=== PATIENT | male | born 1990 | race Caucasian/White ===

== ENCOUNTER 2017-05-27 16:19 | Emergency (ER) | payer OTHER ==
--- NOTE | 2017-05-27 16:50 | RADIOLOGY REPORT (SQ) ---
EXAM DESCRIPTION: SHOULDER RIGHT 2 OR MORE VIEWS COMPLETED DATE/TIME: 05/27/2017 4:42 pm REASON FOR STUDY: injury COMPARISON: None. NUMBER OF VIEWS: Two views. TECHNIQUE: Frontal and Y-view images acquired of the right shoulder. LIMITATIONS: None. FINDINGS: MINERALIZATION: Normal. BONES: There is anterior, inferior dislocation of the glenohumeral joint. No fractures are visualize d. VISUALIZED LUNGS AND RIBS: No pneumothorax. No rib fracture. SOFT TISSUES: No radiopaque foreign body. OTHER: No other significant finding. IMPRESSION: Anterior, inferior dislocation of the glenohumeral joint. TECHNICAL DOCUMENTATION: JOB ID: [id number] [employer]- All Rights Reserved
[2017-05-27] MEDS ORDERED: FENTANYL CITRATE INJ/PF 250 MCG/5 ML AMPULE IV ONE (17:02)
--- NOTE | 2017-05-27 17:18 | ER Document Report ---
ED Extremity Problem, Upper - General Chief Complaint: Shoulder Injury Stated Complaint: SHOULDER INJURY Time Seen by Provider: 05/27/17 16:31 Notes: 26-year-old male. No significant history. Dislocated shoulder about 2 weeks ago. Went to push himself out of bed today and shoulder popped out again. Patient is a [employer]. No other medical problems. TRAVEL OUTSIDE OF THE [place] IN LAST 30 DAYS: No - HPI Patient complains to provider of: Right, Shoulder Onset: Just prior to arrival - Related Data Allergies/Adverse Reactions: No Known Allergies Allergy (Verified 05/27/17 16:20) Past Medical History - General Information source: Patient - Social History Smoking Status: Never Smoker Cigarette use (# per day): No Frequency of alcohol use: None Drug Abuse: None Lives with: Alone Family History: None - Medical History Medical History: Negative Review of Systems - Review of Systems Constitutional: denies: Fever, Malaise, Weakness Cardiovascular: denies: Chest pain, Palpitations, Heart racing Respiratory: denies: Cough, Hurts to breathe, Short of breath, Wheezing Gastrointestinal: denies: Abdominal pain, Diarrhea, Nausea Musculoskeletal: See HPI, Joint pain. denies: Joint swelling Skin: denies: Lesions, Rash Neurological/Psychological: denies: Loss of power, Paralysis, Numbness, Tingling Physical Exam - Vital signs Interpretation: Normal - General General appearance: Appears well, Alert - Respiratory Respiratory status: No respiratory distress Chest status: Nontender Breath sounds: Normal Chest palpation: Normal - Cardiovascular Rhythm: Regular Heart sounds: Normal auscultation Murmur: No - Extremities General upper extremity: Tender, Normal color, Other - There appears to be a dislocated right anterior inferior dislocation of the shoulder. Radius and ulnar pulses are intact. Sensation intact. Two-point discrimination intact.. No: Edema, Normal ROM General lower extremity: Normal inspection Course - Re-evaluation Re-evalutation: 05/27/17 17:32 Right shoulder dislocation reduction : The patient was placed upright and seated position with interlocking hands wrapped around the right knee. Patient was instructed to slowly leaning back into the bed while the head of the bed was slowly lowered. Without the use of pain medications or sedation patient's shoulder spontaneously relocated with this technique. Patient tolerated procedure well. Placed in a sling. Postreduction film ordered. Discharge - Discharge Clinical Impression: Anterior dislocation of right shoulder Qualifiers: Encounter type: initial encounter Qualified Code(s): S43.014A - Anterior dislocation of right humerus, initial encounter Disposition: HOME, SELF-CARE Instructions: Shoulder Dislocation ([facility]), Sling as Treatment ([facility]) Additional Instructions: [place] further evaluation and treatment such as surgery. You may take ibuprofen or Tylenol as needed for pain. Do not use shoulder until cleared by orthopedics or your medical research tech. Forms: Return to Work
--- NOTE | 2017-05-27 17:32 | RADIOLOGY REPORT (SQ) ---
EXAM DESCRIPTION: SHOULDER RIGHT 1 VIEW COMPLETED DATE/TIME: 05/27/2017 5:20 pm REASON FOR STUDY: post procedure COMPARISON: 05/27/2017 NUMBER OF VIEWS: Two views. TECHNIQUE: Internal rotation, external rotation, and Y view images acquired of the right shoulder. LIMITATIONS: None. FINDINGS: MINERALIZATION: Normal. BONES: No Hill-Sachs compression deformity demonstrated on the images provided. JOINTS: Status post closed reduction with normal glenohumeral alignment. VISUALIZED LUNGS AND RIBS: No pneumothorax. No rib fracture. SOFT TISSUES: No radiopaque foreign body. OTHER: No other significant finding. IMPRESSION: Status post closed reduction of glenohumeral dislocation. No fractures demonstrated. TECHNICAL DOCUMENTATION: JOB ID: [id number] [employer]- All Rights Reserved
[2017-05-27] MEDS ORDERED: IBUPROFEN 800 MG TABLET PO ONE (17:34)
[2017-05-27] MEDS ORDERED: HYDROCODONE/ACETAMINOPHEN 5-325 MG TABLET PO ONE (17:34)
== END 2017-05-27 17:59 | disposition home or self-care (01) ==
LOC: ER 16:19
PROC: 0RSJXZZ Reposition Right Shoulder Joint, External Approach (ICD-10-PCS; principal; 2017-05-27)
DX: S43.014A Anterior dislocation of right humerus, initial encounter (principal); X58.XXXA Exposure to other specified factors, initial encounter; Y92.003 Bedroom of unspecified non-institutional (private) residence as the place of occurrence of the external cause
CPT/HCPCS: 99283